=== PATIENT | male | born 1990 | race African-American/Black ===

== ENCOUNTER 2020-02-06 13:51 | Emergency (ER) | payer MEDICAID, SELFPAY ==
--- NOTE | 2020-02-06 14:05 | ED.OVERDOSE ---
HPI - Overdose General Chief Complaint: Overdose Stated Complaint: overdose Time Seen by Provider: 02/06/20 14:01 Source: patient Mode of arrival: ambulatory Limitations: no limitations History of Present Illness complaint: accidental overdose Onset (ago): minute(s) Context: Accidental Overdose: wanted to get high Treatments Prior to Arrival: narcan (wanted to stop being high so he self administered narcan - has nausea now) Related Data Allergies Allergy/AdvReac Type Severity Reaction Status Date / Time No Known Allergies Allergy Verified 02/06/20 14:12 Review of Systems Review of Systems: Constitutional : No Fever, No Chills ENT/Mouth : No Ear Pain, No Nasal Congestion, No sore throat Eyes: No Eye Pain, No Swelling, No Redness Cardiovascular : No Chest Pain, No SOB Respiratory : No Cough, No Sputum, No Dyspnea Gastrointestinal : pos Nausea, No Vomiting, No Diarrhea, No Hematochezia, No Melena Genitourinary : No Dysuria, No Urinary Frequency, No Hematuria Musculoskeletal : No Myalgias Skin : No Skin Lesions, No rash Neuro : No Weakness, No Numbness, No Paresthesias, No Dizziness, No Headache Psych : no Anxiety, no Depression, no SI/HI Heme/Lymph: No Lymphadenopathy Endocrine : No Polyuria, No Polydipsia All other systems reviewed and are negative [facility] Past Medical History Attestation statement: The following information was validated with the patient. Medical History (Updated 02/06/20 @ 14:30 by Lyndsey Batres DO) Opiate abuse, continuous Social History Social History (Updated 02/06/20 @ 14:07 by Lyndsey Batres DO) Smoking Status: Current every day smoker Substance Use Type: Heroin Advance Directives: No Advance Directives Information Provided: Yes Physical Exam Vital Signs: Vital Signs: Last Vital Signs Temp 98.7 F 02/06/20 14:50 Pulse 77 02/06/20 14:50 Resp 18 02/06/20 14:50 BP 122/77 02/06/20 14:50 Pulse Ox 98 02/06/20 14:50 Body Mass Index 40.7 Appearance: Alert. Oriented X3. No acute distress. Eyes: Pupils equal, round and reactive to light. ENT: Pharynx normal. Neck: Normal inspection. Neck supple. CVS: Normal heart rate and rhythm. Pulses normal. Respiratory: No respiratory distress. Breath sounds normal. Abdomen: Soft and nontender. Skin: Skin warm and dry. Normal skin color. Normal skin turgor. Extremities: No lower extremity edema. No calf ttp Neuro: Oriented X 3. No motor deficit. No sensory deficit. Course Course Course Narrative: no issues seen by recovery coaches stable for DC MDM - Overdose MDM Narrative Medical decision making narrative: 30 yo male with opiate abuse, no SI, does want to talk to recovery coaches about suboxone - will monitor, given zofran, send out with narcan Discharge Plan Discharge Clinical Impression: Drug overdose Qualifiers: Encounter type: initial encounter Injury intent: accidental or unintentional Qualified Code(s): T50.901A - Poisoning by unspecified drugs, medicaments and biological substances, accidental (unintentional), initial encounter Patient Disposition: Home, Self-Care Instructions: Opioid Use Disorder (ED) Additional Instructions: return to ED for any worsening symptoms or concerns please follow up with suboxone clinic
[2020-02-06 14:12] VITALS: BP 114/73; BP 120/75; PULSE 74; PULSE 75; RESP 16; TEMP 37.2; O2SAT 99; BMI 40.7
--- NOTE | 2020-02-06 14:16 | PC.NURSE ---
PT TRIAGED, SELF ADMINISTERED 4MG I/N NARCAN, STANDING WAITING FOR AMBULANCE UPON THEIR ARRIVAL. A&OX3, SPEAKING IN CLEAR FULL SENTENCES. C/O NAUSEA, ABD PAIN. MD TO BEDSIDE. ARRIVES WITH 20G IN L FOREARM. MEDICATED PER EMR. 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 PT CALM & COOPERATIVE, RESP EVEN AND NON LABOURED. PROPERTY PLACED IN DECON, SWITCHED TO HOSPITAL ATTIRE
[2020-02-06] MEDS: Naloxone HCl Nasal TAKE HOME 4 MG SPRAY NOSTRILALT (14:24)
--- NOTE | 2020-02-06 14:48 | MHC.CARE ---
Recovery Support note: Patient is a 30 year old [place] speaking male who presented to [facility] ED after self-administering Narcan. Patient expressed a desire to nursing staff for substance use counseling and Suboxone information. This resume writer met with patient to discuss substance use however patient was very drowsy and unable to engage in conversation. Patient reports he lives in [place] and has never tried Suboxone before. This resume writer explained MAT and offered to schedule an appointment for patient at the [facility]. Patient declined, however accepted information on MAT clinics in the area, reporting that he would call on his own when he is ready. Discussed recovery coaching with patient and provided patient with information on the [place] [facility]. Discussed support groups with patient, reports he has tried them in the past and declines resources for this support. This resume writer available if patient is interested in further discussing his substance use and recovery prior to discharge.
[2020-02-06 14:50] VITALS: BP 122/77; PULSE 77; RESP 18; TEMP 37.1; O2SAT 98
--- NOTE | 2020-02-06 15:29 | PC.NURSE ---
patient currently sleeping, rr 17, will continue to monitor.
[2020-02-06 16:00] VITALS: BP 132/80; PULSE 87; RESP 16; TEMP 36.6; O2SAT 97
[2020-02-06 18:00] VITALS: BP 108/51; PULSE 61; RESP 18; TEMP 36.4; O2SAT 97
--- NOTE | 2020-02-06 18:04 | PC.NURSE ---
per provider- patient is not to be discharged until he is more wakeful, patient wakes to verbal stimulus, vss however patient continues to be drowsy, will continue to monitor.
--- NOTE | 2020-02-06 19:05 | PC.NURSE ---
patient continues to be drowsy but wakes to verbal stimulus, will continue to monitor.
[2020-02-06 20:41] VITALS: BP 108/58; PULSE 66; RESP 18; TEMP 36.9; O2SAT 97
--- NOTE | 2020-02-06 20:43 | PC.NURSE ---
patient continues to be sleepy, wakes to verbal stimulus, vss, will continue to monitor.
[2020-02-06 22:29] VITALS: BP 109/62; PULSE 59; RESP 19; TEMP 36.5; O2SAT 96
--- NOTE | 2020-02-06 22:30 | PC.NURSE ---
patient woke to verbal stimulus, still drowsy, this nurse asked the patient if he was ready to discharge- patient states he doesnt feel well, when this nurse inquired as to what the patient meant, pt states he has nausea and just doest feel well, will notify provider and continue to monitor.
--- NOTE | 2020-02-06 22:43 | PC.NURSE ---
provider saw patient- gave patient po fluids/crackers to do po challange prior to discharge, will continue to monitor.
--- NOTE | 2020-02-06 22:58 | ED_ITS ---
HPI - Overdose General Chief Complaint: Overdose Stated Complaint: overdose Time Seen by Provider: 02/06/20 14:01 Source: patient Mode of arrival: ambulatory Limitations: no limitations Related Data Allergies Allergy/AdvReac Type Severity Reaction Status Date / Time No Known Allergies Allergy Verified 02/06/20 14:12 [facility] Past Medical History Medical History (Updated 02/06/20 @ 14:30 by Lyndsey Batres DO) Opiate abuse, continuous Social History Social History (Updated 02/06/20 @ 14:07 by Lyndsey Batres DO) Alcohol intake: never Smoking Status: Current every day smoker Use of substances other than those prescribed or required for medical reasons: Yes Substance Use Type: Heroin Advance Directives: No Advance Directives Information Provided: Yes Physical Exam Vital Signs: Vital Signs: Last Vital Signs Temp 97.7 F 02/06/20 22:29 Pulse 59 02/06/20 22:29 Resp 19 02/06/20 22:29 BP 109/62 02/06/20 22:29 Pulse Ox 96 02/06/20 22:29 Body Mass Index 40.7 MDM - Overdose MDM Narrative Medical decision making narrative: Patient monitor in the emergency department for many hours. Now awake alert ambulatory tolerated p.o.. Will discharge patient home. Patient told to stop using narcotics. Currently in stable condition. Patient asked to go to detox. Narcan was provided to patient. Discharge Plan Discharge Clinical Impression: Drug overdose Qualifiers: Encounter type: initial encounter Injury intent: accidental or unintentional Qualified Code(s): T50.901A - Poisoning by unspecified drugs, medicaments and biological substances, accidental (unintentional), initial encounter Patient Disposition: Home, Self-Care Instructions: Opioid Use Disorder (ED) Additional Instructions: return to ED for any worsening symptoms or concerns please follow up with suboxone clinic
== END 2020-02-06 23:38 | disposition home or self-care (01) ==
PROVIDERS: Emergency Provider Emergency Medicine Emergency Medical Services
DX: T40.1X1A Poisoning by heroin, accidental (unintentional), initial encounter (principal); F11.10 Opioid abuse, uncomplicated; Y92.9 Unspecified place or not applicable; F17.200 Nicotine dependence, unspecified, uncomplicated; Z71.6 Tobacco abuse counseling; Z71.51 Drug abuse counseling and surveillance of drug abuser
CPT/HCPCS: 99283; 99285

== ENCOUNTER 2020-02-21 18:58 | Emergency (ER) | payer MEDICAID, SELFPAY ==
[2020-02-21 19:25] VITALS: BP 105/56; PULSE 89; RESP 16; TEMP 36.9; O2SAT 94; BMI 24.5
--- NOTE | 2020-02-21 20:15 | PC.NURSE ---
PATIENT SEEN BY PROVIDER, REFUSING TO OPEN HIS MOUTH, EATING MCDONALDS, DRINKING SODA. STATING COMPLAINING ABOUT CARE AND THAT NO ONE IS LISTENING TO HIM. AMBULATING IN THE [place] STEADILY. STATING THAT HE POSSESSIONS ARE MISSING, WORRIED HE LEFT THEM AT HIS PREVIOUS LOCATION. PATIENT VERBALIZED THAT HE KNOWS NOTHING HAS LEFT HIS POSSESSION WHILE HE HAS BEEN HERE. I AM NOT STATING THAT YOU TOOK THEM, BUT EVERYTHING IS MISSING. PATIENT DUMPING ALL HIS BELONGINGS ON THE BED AND COUNTING AND SORTING EVERYTHING FOR A THIRD TIME.
--- NOTE | 2020-02-21 20:20 | ED.GENADULT ---
HPI - General Adult General Chief complaint: General Medical Stated complaint: overdose Time Seen by Provider: 02/21/20 20:20 Source: patient Mode of arrival: ambulatory Limitations: no limitations History of Present Illness HPI narrative: Patient is brought by EMS after being found sleepy and my gums, easily arousable, no Narcan given. Patient states that his throat hurts while drinking and eating complaint: Overdose Related Data Allergies Allergy/AdvReac Type Severity Reaction Status Date / Time No Known Allergies Allergy Verified 02/06/20 14:12 Review of Systems Review of Systems: Constitutional : No fever no chills ENT/Mouth : No Hearing loss, No Ear Pain, No Nasal Congestion, No Sinus Pain, No Hoarseness, complaining of sore throat, no swallowing difficulty Eyes: No Eye Pain, No Swelling, No Redness, No Foreign Body, No Discharge, No Vision Changes Cardiovascular : No Chest Pain, No SOB, No Dyspnea Respiratory : No Cough, No Sputum, No Wheezing, No Smoke Exposure, No Dyspnea Gastrointestinal : No Nausea, No Vomiting, No Diarrhea Genitourinary : no irregular bleeding, No Dysuria, No Urinary Frequency, No Hematuria, No Urinary Incontinence, No Urgency, No Flank Pain, No Urinary Flow Changes, No Hesitancy Musculoskeletal : No joint pain, No Myalgias, No Joint Swelling Skin : No Skin Lesions, No rash Neuro : No Weakness, No Numbness, No Paresthesias, No Loss of Consciousness, No Dizziness, No Headache Psych : No Anxiety/Panic, No Depression, No SI/HI/AH/VH, No Social Issues, Heme/Lymph: No Bruising, No Bleeding,No Lymphadenopathy Endocrine : No Polyuria, No Polydipsia, No Temperature Intolerance [facility] Past Medical History Medical History (Updated 02/21/20 @ 20:21 by Norma Juarez MD) Opiate abuse, continuous Social History Social History (Updated 02/06/20 @ 14:07 by Lyndsey Batres DO) Alcohol intake: never Smoking Status: Current every day smoker Substance Use Type: Heroin Advance Directives: No Physical Exam Vital Signs: Vital Signs: Last Vital Signs Temp 98.4 F 02/21/20 19:25 Pulse 89 02/21/20 19:25 Resp 16 02/21/20 19:25 BP 105/56 L 02/21/20 19:25 Pulse Ox 94 11/27/20 19:25 Body Mass Index 24.5 Declined physical exam Course Course Course Narrative: After patient woke up, patient became belligerent with our techs and the charge nurse. Patient uncooperative. I tried looking into the patient's throat, patient states that he was busy chewing his hamburger, patient kept stuffing food into his mouth. After he was done eating, patient became more belligerent, security had to be called to calm the patient. The patient states that he is not concerned over his sore throat, requesting detox. Patient was provided with documentation for detox. I was informed by our tech that the patient is paranoid, stating that he is afraid that the staff here will steal his money. Discharge Plan Discharge Clinical Impression: Overdose Qualifiers: Encounter type: initial encounter Injury intent: accidental or unintentional Qualified Code(s): T50.901A - Poisoning by unspecified drugs, medicaments and biological substances, accidental (unintentional), initial encounter Patient Disposition: Home, Self-Care Instructions: Adult Overdose (ED) Additional Instructions: Please stop using drugs Please follow-up with your primary care physician tomorrow. If you have any worsening or new symptoms, please return to the emergency room or call 911 Interventions: ED Discharge Assessment Last Done: 02/21/20 20:34
== END 2020-02-21 20:58 | disposition home or self-care (01) ==
PROVIDERS: Emergency Provider Emergency Medicine
DX: T40.1X1A Poisoning by heroin, accidental (unintentional), initial encounter (principal); Y92.9 Unspecified place or not applicable; F11.20 Opioid dependence, uncomplicated; Z71.51 Drug abuse counseling and surveillance of drug abuser
CPT/HCPCS: 99283